=== PATIENT | female | born 1925 | race Caucasian/White ===

== ENCOUNTER 2016-08-22 13:31 | Observation (INO) | payer OTHER, BC ==
[~2016-08-22] VITALS: Ht 162.6 cm; Wt 76.7 kg
[~2016-08-22 13:31] MED LIST: ASPI81TA28 PO; METO1TAB66 PO; ULT50X PO
[2016-08-22] MEDS ORDERED: RANITAB33 PO (13:53)
[2016-08-22] MEDS ORDERED: ASPIRIN 81 MG CHEW PO STA (13:53)
[2016-08-22] MEDS ORDERED: FERR143T5 PO (13:53)
[2016-08-22] MEDS ORDERED: NITROGLYCERIN OINT 2% 1GM PACKET EXT ONE (14:00)
[2016-08-22 14:12] LABS: BASO % 0.5 %; BASO ABS # 0.04 K/uL (0-0.2); COMPLETE YES; EOS % 5.8 %; HEMATOCRIT 36.7 % (37-47); IG% 0.1 %; LYMPH % 30.9 %; LYMPH ABS # 2.57 K/uL (1.2-3.4); MEAN CELL VOLUME 89.3 fL (80-100); MEAN CORPUSCULAR HEMOGLOBIN 29.2 pg (25-34); MEAN CORPUSCULAR HGB CONC 32.7 g/dl (32-36); MEAN PLATELET VOLUME 9.9 fL (7.4-10.4); MONO % 14.1 %; NEUT % 48.6 %; PLATELET COUNT 244 K/uL (130-400); RED BLOOD COUNT 4.11 M/uL (4.2-5.4); WHITE BLOOD COUNT 8.32 K/uL (4.8-10.8)
[2016-08-22 14:26] LABS: CALCIUM 9.2 mg/dl (8.5-10.1)
[2016-08-22 14:29] LABS: ALT/SGPT 30 U/L (12-78); AST/SGOT 33 U/L (15-37); BLOOD UREA NITROGEN 17 mg/dl (7-18); BUN/CREATININE RATIO 20.4 (10-20); CARBON DIOXIDE 23 mmol/L (21-32); CHLORIDE 106 mmol/L (98-107); CREATININE 0.82 mg/dl (0.60-1.20); GLUCOSE 96 mg/dl (70-99); POTASSIUM 3.9 mmol/L (3.5-5.1); SODIUM 138 mmol/L (136-145)
--- NOTE | 2016-08-22 14:30 | DIAGNOSTIC IMAGING REPORT ---
CHEST ONE VIEW PORTABLE HISTORY: Atypical CHEST PAIN COMPARISON: Chest 02/13/2015. FINDINGS: The heart remains mildly enlarged. Calcified granuloma the left lung base. Mild diffuse interstitial thickening which is likely chronic. Stable biapical densities, right greater than left. This is better appreciated on a [address] No pleural effusions. No pneumothorax. IMPRESSION: No significant change compared to the prior study. No acute process. Stable biapical densities, right greater than left. Electronically signed by: Octavio Mccormick M.D. 08/22/2016 2:29 PM Dictated Date/Time: 08/22/2016 2:27 PM
--- NOTE | 2016-08-22 14:34 | DIAGNOSTIC IMAGING REPORT ---
LEFT WRIST 4 VIEWS HISTORY: left wrist pain, no trauma COMPARISON: None. FINDINGS: There is no fracture or dislocation. Mild diffuse soft tissue swelling. Chondrocalcinosis at the TFCC. Severe osteoarthritis at the STT joint and first carpometacarpal joints. The bones are osteopenic. No radiopaque foreign bodies. IMPRESSION: 1. No fracture or dislocation within the left wrist. 2. Chondrocalcinosis. 3. Severe osteoarthritis at the STT and first carpometacarpal joints. Electronically signed by: Octavio Mccormick M.D. 08/22/2016 2:33 PM Dictated Date/Time: 08/22/2016 2:31 PM
[2016-08-22 14:35] LABS: ALKALINE PHOSPHATASE 92 U/L (45-117); CKMB/CK RATIO 3.2 (0-3.0)
[2016-08-22 14:52] LABS: PARTIAL THROMBOPLASTIN RATIO 1.2; PROTHROMBIN TIME (PATIENT) 10.5 SECONDS (9.0-12.0)
[2016-08-22] MEDS ORDERED: IV FLUIDS COMPLETED PRN (15:30)
[2016-08-22] MEDS ORDERED: ONDANSETRON INJ 2 MG/ML 2 ML VIAL IV PRN (16:00)
[2016-08-22] MEDS ORDERED: ACETAMINOPHEN 325 MG TAB PO PRN (16:00)
[2016-08-22] MEDS ORDERED: TRAMADOL HCL 50 MG TAB PO PRN (16:00)
[2016-08-22] MEDS ORDERED: ULT50X PO (16:02)
--- NOTE | 2016-08-22 16:18 | History and Physical ---
History & Physical Date of Service Aug 22, 2016. History & Physical This is an 89 year old pleasantly demented female with a PMH of hypertension, iron deficiency anemia presents with L wrist pain. As per daughter, who is at bedside, she was using this L wrist a lot the past few days. Upon presentation to the ER, the patient also mentioned L rib pain and L sided chest pain. She presented with uncontrolled blood pressure - and the daughter mentioned that she may have missed a few doses of her home medications. Currently, she is still pleasantly demented; no pain at this time, no distress. VITALS: Last Vital Signs Documentation Date Time Temp Pulse Resp B/P (MAP) Pulse Ox O2 Delivery O2 Flow Rate FiO2 08/22/16 14:57 75 18 154/73 08/22/16 14:15 96 Room Air 08/22/16 13:32 36.6 GEN: no acute distress, +pleasantly demented HEENT: NC/AT CVS: +S1, S2, RRR, holosystolic murmur heard best at R second intercostal space LUNGS: CTA b/l, no wheezing ABD: soft, NT/ND EXT: +slightly swollen L wrist, painful/decreased ROM NEURO: pleasantly demented, oriented x1 Chest Pain most likely musculoskeletal in nature initial cardiac enzyme is negative EKG does not show significant changes check echo, trend enzymes, monitor in tele repeat EKG in AM for now continue Toprol home dose continue aspirin d/c nitro paste in AM Hypertensive Urgency blood pressure > 190/100 missed some Toprol doses at home currently with Nitro paste, which should be d/c'd on 08/23 continue b-octaviano in AM, monitor pressures may need dose adjustment L Wrist Osteoarthritis L Wrist radiograph shows severe osteoarthritis likely an overuse injury will try Tramadol PRN as well as Voltaren gel
--- NOTE | 2016-08-22 16:38 | History and Physical ---
History & Physical Date & Time of Service: Aug 22, 2016 at 16:02 Chief Complaint: Swelling To Left Hand/Fingertips Sting/Pain Primary Care Physician: Yaritza Thomas M.D. History of Present Illness Source: patient, family (daughter Octavia at bedside), clinic records, hospital records This is an 89 year old female with PMH of hypertension and dementia who presents to the ED with left wrist pain and chest pain. History limited from the patient due to dementia. Daughter at bedside states patient was using the wrist Sunday working with windows and blinds. Then on Sunday patient developed left wrist pain and swelling with intermittent tingling of the fingers. Patient tried using ice, Tramadol, and Tylenol which helped, but wrist remains swollen. No fall. No prior wrist problems. Wrist pain is controlled at present. Daughter states en route patient complained of pain in left lateral rib area and she appeared flushed in the face. Per daughter at triage patient mentioned pain in left anterior chest. No chest pain currently. Patient does not recall when the chest pain started or any exacerbating factors. Pt's mental status is at baseline per daughter. Daughter reports chronic mild HURD when walking uphill which has been stable. Patient recently saw Dr. Thomas for rectal bleeding and was found to have hemorrhoids. No longer having any bleeding. Patient denies fever, chills, diaphoresis, dizziness, VIRAMONTES, URI symptoms , cough, SOB at rest, acid reflux symptoms, N/V, change in bowel or bladder movements, calf pain, edema, anxiety. Daughter reports patient missed her medications for past few days but did take them this morning. No history of CAD. No prior stress test. TTE in 01/2015 showed EF 55-60% and moderate aortic sclerosis. Past Medical/Surgical History Medical Problems: (1) Dementia Status: Chronic (2) HTN (hypertension) Status: Chronic (3) Pneumonia Status: Resolved Surgical Problems: (1) H/O: hysterectomy Status: Resolved (2) S/P cholecystectomy Status: Chronic Family History FH: HTN (hypertension) FH: cancer FH: gallbladder disease FH: heart disease BROTHER SISTER Social History Smoking Status: Never Smoker Alcohol Use: none Housing status: lives with family (with daughter) Allergies Coded Allergies: No Known Allergies (Unverified , 08/22/16) Home Medications Scheduled Aspirin (Aspirin Ec), 81 MG PO DAILY Ferrous Sulfate (Iron Slow Release), 143 MG PO DAILY Metoprolol Succinate (Toprol Xl), 50 MG PO DAILY Ranitidine Hcl (Zantac), 75 MG PO DAILY Scheduled PRN Tramadol HCl (Tramadol HCl), 50 MG PO Q6H PRN for Pain Review of Systems Ten systems reviewed and negative except as noted in HPI. Physical Exam Vital Signs Date Time Temp Pulse Resp B/P (MAP) Pulse Ox O2 Delivery O2 Flow Rate FiO2 08/22/16 14:57 75 18 154/73 08/22/16 14:15 87 20 195/81 96 Room Air 08/22/16 13:47 78 08/22/16 13:39 95 Room Air 08/22/16 13:32 36.6 97 18 167/84 94 Room Air General Appearance: WD/WN, no apparent distress, + pertinent finding (pleasant alert elderly female, lying in bed, no distress, daughter at bedside) Head: normocephalic, atraumatic Eyes: normal inspection, PERRL, EOMI, sclerae normal ENT: hearing grossly normal, pharynx normal Neck: supple, trachea midline Respiratory/Chest: lungs clear, normal breath sounds, no respiratory distress, no accessory muscle use, + pertinent finding (no tenderness on anterior chest) Cardiovascular: regular rate, rhythm, + systolic murmur Abdomen/GI: normal bowel sounds, non tender, soft Extremities/Musculoskelatal: no calf tenderness, no pedal edema, + pertinent finding (left lateral rib area + tenderness to palpation. left dorsal wrist mild swelling with trace erythema. no tenderness. no pain on ROM. ) Neurologic/Psych: alert, normal mood/affect, + pertinent finding (oriented to person, recognizes daughter, knows she is in the hospital but not the name of the hospital, disoriented to month/ year. no focal deficit on gross examination. ) Skin: normal color, warm/dry, no rash (no rash in left chest or under the left breast) Diagnostics Laboratory Results Results Past 24 Hours Test 08/22/16 14:00 08/22/16 14:26 Range/Units White Blood Count 8.32 4.8-10.8 K/uL Red Blood Count 4.11 4.2-5.4 M/uL Hemoglobin 12.0 12.0-16.0 g/dL Hematocrit 36.7 37-47 % Mean Corpuscular Volume 89.3 80-100 fL Mean Corpuscular Hemoglobin 29.2 25-34 pg Mean Corpuscular Hemoglobin Concent 32.7 32-36 g/dl Platelet Count 244 130-400 K/uL Mean Platelet Volume 9.9 7.4-10.4 fL Neutrophils (%) (Auto) 48.6 % Lymphocytes (%) (Auto) 30.9 % Monocytes (%) (Auto) 14.1 % Eosinophils (%) (Auto) 5.8 % Basophils (%) (Auto) 0.5 % Neutrophils # (Auto) 4.05 1.4-6.5 K/uL Lymphocytes # (Auto) 2.57 1.2-3.4 K/uL Monocytes # (Auto) 1.17 0.11-0.59 K/uL Eosinophils # (Auto) 0.48 0-0.5 K/uL Basophils # (Auto) 0.04 0-0.2 K/uL RDW Standard Deviation 48.4 36.4-46.3 fL RDW Coefficient of Variation 14.8 11.5-14.5 % Immature Granulocyte % (Auto) 0.1 % Immature Granulocyte # (Auto) 0.01 0.00-0.02 K/uL Sodium Level 138 136-145 mmol/L Potassium Level 3.9 3.5-5.1 mmol/L Chloride Level 106 98-107 mmol/L Carbon Dioxide Level 23 21-32 mmol/L Anion Gap 9.0 3-11 mmol/L Blood Urea Nitrogen 17 7-18 mg/dl Creatinine 0.82 0.60-1.20 mg/dl Est Creatinine Clear Calc Drug Dose 47.3 ml/min Estimated GFR () 73.5 Estimated GFR (Non- 63.4 BUN/Creatinine Ratio 20.4 10-20 Random Glucose 96 70-99 mg/dl Calcium Level 9.2 8.5-10.1 mg/dl Total Bilirubin 0.5 0.2-1 mg/dl Direct Bilirubin 0.2 0-0.2 mg/dl Aspartate Amino Transf (AST/SGOT) 33 15-37 U/L Alanine Aminotransferase (ALT/SGPT) 30 12-78 U/L Alkaline Phosphatase 92 45-117 U/L Total Creatine Kinase 98 26-192 U/L Creatine Kinase MB 3.1 0.5-3.6 ng/ml Creatine Kinase MB Ratio 3.2 0-3.0 Troponin I < 0.015 0-0.045 ng/ml Total Protein 7.3 6.4-8.2 gm/dl Albumin 3.3 3.4-5.0 gm/dl Lipase 121 73-393 U/L Prothrombin Time 10.5 9.0-12.0 SECONDS Prothromb Time International Ratio 1.0 0.9-1.1 Activated Partial Thromboplast Time 31.6 21.0-31.0 SECONDS Partial Thromboplastin Ratio 1.2 Diagnostic Radiology CHEST ONE VIEW PORTABLE HISTORY: Atypical CHEST PAIN COMPARISON: Chest 02/13/2015. FINDINGS: The heart remains mildly enlarged. Calcified granuloma the left lung base. Mild diffuse interstitial thickening which is likely chronic. Stable biapical densities, right greater than left. This is better appreciated on a [address] No pleural effusions. No pneumothorax. IMPRESSION: No significant change compared to the prior study. No acute process. Stable biapical densities, right greater than left. LEFT WRIST 4 VIEWS HISTORY: left wrist pain, no trauma COMPARISON: None. FINDINGS: There is no fracture or dislocation. Mild diffuse soft tissue swelling. Chondrocalcinosis at the TFCC. Severe osteoarthritis at the STT joint and first carpometacarpal joints. The bones are osteopenic. No radiopaque foreign bodies. IMPRESSION: 1. No fracture or dislocation within the left wrist. 2. Chondrocalcinosis. 3. Severe osteoarthritis at the STT and first carpometacarpal joints EKG NSR, 89 bpm, Minimal voltage criteria for LVH, may be normal variant, possible Inferior infarct age undetermined, cannot rule out Anterior infarct age undetermined, no significant change from prior EKG, as per cardiology read, also reviewed by me Impression Assessment and Plan CHEST PAIN Most likely musculoskeletal Rule out ACS Initial troponin negative; EKG without significant change Received aspirin 324 mg and nitro paste in ER Continue aspirin 81 mg daily Nitro paste through tomorrow AM for BP control Monitor in telemetry Trend serial cardiac enzymes Check echo Fasting lipid panel in am Repeat EKG in am HYPERTENSION BP elevated up to 210s systolic in ER Nitro paste started in ER with improvement to 150s systolic Continue Toprol XL 50 mg daily Continue nitro paste for today- d/c in AM Monitor BP May need med adjustment LEFT WRIST PAIN Likely due to overuse injury with underlying arthritis L wrist X-ray shows no fracture or dislocation, + chondrocalcinosis and severe OA PRN Tramadol, Tylenol, Voltaren gel, ice GERD Continue H2 octaviano DEMENTIA Mental status at baseline per daughter Monitor for delirium DVT PROPHYLAXIS Lovenox SQ CODE STATUS DNR per my discussion with the patient and her daughter Octavia who is POA. She does have a living will. DISPOSITION Observation to telemetry Lives with daughter Follows with Dr. Thomas for primary care Patient seen in collaboration with Dr. Tyler. Please see his addendum. VTE Prophylaxis VTE Risk Assessment Done? Y/N: Yes Risk Level: Moderate Given or contraindicated: Enoxaparin (Lovenox)SQ
[2016-08-22 17:16] VITALS: BP_SYST 183; BP_SYST 185; BP_DIAS 72; BP_DIAS 73; PULSE 82; TEMP 36.6; O2SAT 95
[2016-08-22 17:45] VITALS: BP 185/72; PULSE 82; TEMP 36.6; O2SAT 95; Ht 162.6 cm; Wt 76.7 kg
--- NOTE | 2016-08-22 17:56 | EMERGENCY ROOM VISIT NOTE ---
History Report prepared by Gunjan: Purvi Spencer Under the Supervision of: Dr. Lyle Rivera M.D. First contact with patient: 13:41 Chief Complaint: CARDIAC ASSESSMENT Stated Complaint: SWELLING TO LEFT HAND/FINGERTIPS STING/PAIN Nursing Triage Summary: pt to ED with left arm pain and chest pain that started with the arm on sunday and chest pain today History of Present Illness The patient is a 89 year old female who presents to the Emergency Room with complaints of worsening pain to left hand that began 2 days prior to arrival. Per the patient and her daughter, the patient has been experiencing pain to her left hand and fingers. She notes a tingling sensation to her fingers. The patient is also experiencing swelling to the left wrist. Today the patient was doing house work when she developed intermittent left sided chest pain. She rates the pain as 6/10 in severity. She has no chest pain at the moment. The patient is also very fatigued and has a headache. The patient is on hypertension medication and missed a few dosages the past couple of days but did take her medication this morning. She also took a baby Aspirin today. The patient has dementia. Pt denies LOC, fevers, chills, diaphoresis, visual changes , neck pain, breathing difficulties, nausea, vomiting, abdominal pain, back pain , melena, hematochezia, urinary symptoms, numbness, lymphadenopathy, rash, or other complaints. Source of History: patient, family Onset: 2 days OCCASIONAL BABYSITTER Position: hand (left) Quality: other (swelling and tingling) Associated Symptoms: + headache, + chest pain (left sided, 6/10), + fatigue Review of Systems See HPI for pertinent positives and negatives. A total of ten systems were reviewed and were otherwise negative. Past Medical & Surgical Medical Problems: (1) Chest pain (2) Dementia (3) HTN (hypertension) (4) Pleurisy (5) Pneumonia Surgical Problems: (1) H/O: hysterectomy (2) S/P cholecystectomy Family History FH: HTN (hypertension) FH: cancer FH: gallbladder disease FH: heart disease Social History Smoking Status: Never Smoker Alcohol Use: none Housing Status: lives with family Current/Historical Medications Scheduled Aspirin (Aspirin Ec), 81 MG PO DAILY Ferrous Sulfate (Iron Slow Release), 143 MG PO DAILY Metoprolol Succinate (Toprol Xl), 50 MG PO DAILY Ranitidine Hcl (Zantac), 75 MG PO DAILY Scheduled PRN Tramadol HCl (Tramadol HCl), 50 MG PO Q6H PRN for Pain Allergies Coded Allergies: No Known Allergies (Unverified , 08/22/16) Physical Exam Vital Signs Date Time Temp Pulse Resp B/P (MAP) Pulse Ox O2 Delivery O2 Flow Rate FiO2 08/22/16 15:01 71 14 08/22/16 14:57 154/73 08/22/16 14:57 75 18 154/73 08/22/16 14:31 81 20 08/22/16 14:15 87 20 195/81 96 Room Air 08/22/16 14:13 195/81 08/22/16 14:01 81 19 08/22/16 13:47 78 08/22/16 13:44 216/98 08/22/16 13:39 95 Room Air 08/22/16 13:32 36.6 97 18 167/84 94 Room Air Physical Exam GENERAL: Awake, alert, well-appearing, in no distress HENT: Normocephalic, atraumatic. Oropharynx unremarkable. EYES: Normal conjunctiva. Sclera non-icteric. NECK: Supple. No nuchal rigidity. FROM. No JVD. RESPIRATORY: Clear to auscultation. CARDIAC: Regular rate, normal rhythm. Extremities warm and well perfused. Pulses equal. ABDOMEN: Soft, non-distended. No tenderness to palpation. No rebound or guarding. No masses. RECTAL: Deferred. MUSCULOSKELETAL: Left chest tenderness that does not reproduce the pain. The back is symmetrical on inspection without obvious abnormality. There is no CVA tenderness to palpation. No joint edema. Left wrist swelling. LOWER EXTREMITIES: Calves are equal size bilaterally and non-tender. No edema. No discoloration. NEURO: Normal sensorium. No sensory or motor deficits noted. SKIN: No rash or jaundice noted. Medical Decision & Procedures ER Provider Diagnostic Interpretation: X-ray: Per my interpretation, radiologist review. CHEST ONE VIEW PORTABLE HISTORY: Atypical CHEST PAIN COMPARISON: Chest 02/13/2015. FINDINGS: The heart remains mildly enlarged. Calcified granuloma the left lung base. Mild diffuse interstitial thickening which is likely chronic. Stable biapical densities, right greater than left. This is better appreciated on a [address] No pleural effusions. No pneumothorax. IMPRESSION: No significant change compared to the prior study. No acute process. Stable biapical densities, right greater than left. Electronically signed by: Octavio Mccormick M.D. 08/22/2016 2:29 PM Dictated Date/Time: 08/22/2016 2:27 PM LEFT WRIST 4 VIEWS HISTORY: left wrist pain, no trauma COMPARISON: None. FINDINGS: There is no fracture or dislocation. Mild diffuse soft tissue swelling. Chondrocalcinosis at the TFCC. Severe osteoarthritis at the STT joint and first carpometacarpal joints. The bones are osteopenic. No radiopaque foreign bodies. IMPRESSION: 1. No fracture or dislocation within the left wrist. 2. Chondrocalcinosis. 3. Severe osteoarthritis at the STT and first carpometacarpal joints. Electronically signed by: Octavio Mccormick M.D. 08/22/2016 2:33 PM Dictated Date/Time: 08/22/2016 2:31 PM Laboratory Results 08/22/16 14:00 Red Blood Count 4.11, Mean Corpuscular Volume 89.3, Mean Corpuscular Hemoglobin 29.2, Mean Corpuscular Hemoglobin Concent 32.7, Mean Platelet Volume 9.9, Neutrophils (%) (Auto) 48.6, Lymphocytes (%) (Auto) 30.9, Monocytes (%) (Auto) 14.1, Eosinophils (%) (Auto) 5.8, Basophils (%) (Auto) 0.5, Neutrophils # (Auto ) 4.05, Lymphocytes # (Auto) 2.57, Monocytes # (Auto) 1.17, Eosinophils # (Auto ) 0.48, Basophils # (Auto) 0.04 08/22/16 14:00 Test 08/22/16 14:00 08/22/16 14:26 White Blood Count 8.32 K/uL (4.8-10.8) Red Blood Count 4.11 M/uL (4.2-5.4) Hemoglobin 12.0 g/dL (12.0-16.0) Hematocrit 36.7 % (37-47) Mean Corpuscular Volume 89.3 fL (80-100) Mean Corpuscular Hemoglobin 29.2 pg (25-34) Mean Corpuscular Hemoglobin Concent 32.7 g/dl (32-36) Platelet Count 244 K/uL (130-400) Mean Platelet Volume 9.9 fL (7.4-10.4) Neutrophils (%) (Auto) 48.6 % Lymphocytes (%) (Auto) 30.9 % Monocytes (%) (Auto) 14.1 % Eosinophils (%) (Auto) 5.8 % Basophils (%) (Auto) 0.5 % Neutrophils # (Auto) 4.05 K/uL (1.4-6.5) Lymphocytes # (Auto) 2.57 K/uL (1.2-3.4) Monocytes # (Auto) 1.17 K/uL (0.11-0.59) Eosinophils # (Auto) 0.48 K/uL (0-0.5) Basophils # (Auto) 0.04 K/uL (0-0.2) RDW Standard Deviation 48.4 fL (36.4-46.3) RDW Coefficient of Variation 14.8 % (11.5-14.5) Immature Granulocyte % (Auto) 0.1 % Immature Granulocyte # (Auto) 0.01 K/uL (0.00-0.02) Anion Gap 9.0 mmol/L (3-11) Est Creatinine Clear Calc Drug Dose 47.3 ml/min Estimated GFR () 73.5 Estimated GFR (Non- 63.4 BUN/Creatinine Ratio 20.4 (10-20) Calcium Level 9.2 mg/dl (8.5-10.1) Total Bilirubin 0.5 mg/dl (0.2-1) Direct Bilirubin 0.2 mg/dl (0-0.2) Aspartate Amino Transf (AST/SGOT) 33 U/L (15-37) Alanine Aminotransferase (ALT/SGPT) 30 U/L (12-78) Alkaline Phosphatase 92 U/L (45-117) Total Creatine Kinase 98 U/L (26-192) Creatine Kinase MB 3.1 ng/ml (0.5-3.6) Creatine Kinase MB Ratio 3.2 (0-3.0) Troponin I < 0.015 ng/ml (0-0.045) Total Protein 7.3 gm/dl (6.4-8.2) Albumin 3.3 gm/dl (3.4-5.0) Lipase 121 U/L (73-393) Prothrombin Time 10.5 SECONDS (9.0-12.0) Prothromb Time International Ratio 1.0 (0.9-1.1) Activated Partial Thromboplast Time 31.6 SECONDS (21.0-31.0) Partial Thromboplastin Ratio 1.2 Laboratory results reviewed by me Medications Administered Medications (Trade) Dose Ordered Sig/Ho Route Start Time Stop Time Status Last Admin Dose Admin Aspirin (Aspirin Chew) 324 mg NOW STAT PO 08/22/16 13:53 08/22/16 13:54 DC 08/22/16 14:13 324 MG Nitroglycerin (Nitroglycerin 2% Oint) 1 inch NOW ONCE EXT 08/22/16 14:00 08/22/16 14:01 DC 08/22/16 14:13 1 INCH ECG Indication: chest pain Rate (beats per minute): 89 Rhythm: normal sinus Findings: no acute ischemic change, other (LVH, inferior Q waves, poor R wave progression anteriorly) ED Course 1351: The patient was evaluated in room B4. A complete history and physical exam was performed. 1353: Aspirin Chew 324 mg PO. 1400: Nitroglycerin 2% Oint 1 inch EXT. 1503: Discussed the patient's case with HOUSTON Dowling. The patient will be evaluated for further treatment and disposition. 1510: Upon reexamination, the patient was hemodynamically stable. I discussed the test results and treatment plan with HOUSTON Dowling. The patient will be evaluated for further management. Medical Decision Medication Reconciliation: I attest that I have personally reviewed the patient' s current medication list Blood pressure screening: Patient was found to have an elevated blood pressure and was referred to their primary doctor for recheck and further treatment. Triage Nursing notes reviewed. The patient's presentation and history were concerning for chest and wrist pain. Etiologies such as musculoskeletal, cardiac ischemia, aortic dissection, pulmonary embolism, pneumonia, pneumothorax, infections, gastrointestinal, as well as others were entertained. The patient was evaluated. Clinically she is doing well. Her left wrist is swollen. X-ray imaging reveals arthritic change. The patient was given aspirin and Nitropaste. She was very hypertensive . Her CBC, chemistry panel, LFTs lipase and cardiac markers were unremarkable. Chest imaging does not reveal any acute pulmonary issues. She will need further evaluation and management in the hospital regarding this chest pain. Consultation was made with internal medicine. The patient was evaluated in the Emergency Room for further treatment. Consults Time Called: 1500 Consulting Physician: HOUSTON Dowling Returned Call: [phone] Discussed the patient's case. The patient will be evaluated for further treatment and disposition. Impression Primary Impression: Left sided chest pain Additional Impression: Left wrist pain Scribe Attestation The scribe's documentation has been prepared under my direction and personally reviewed by me in its entirety. I confirm that the note above accurately reflects all work, treatment, procedures, and medical decision making performed by me. Departure Information Dispostion Being Evaluated By Hospitalist Prescriptions Tramadol HCl (Tramadol HCl) 50 Mg Tab 50 MG PO Q6H Y for Pain, #20 TAB Prov: Rosy Olsen PA-C 08/22/16 Referrals Yaritza Thomas M.D. (PCP) Problem Qualifiers
[2016-08-22 18:23] VITALS: BP 133/65; PULSE 80
[2016-08-22] MEDS: NITROGLYCERIN OINT 2% 1GM PACKET EXT SCH ×2 (18:24→23:31)
[2016-08-22 20:22] LABS: CKMB/CK RATIO 2.4 (0-3.0)
[2016-08-22] MEDS: DICLOFENAC SOD 1% GEL 100 GM TUBE EXT SCH (21:25)
[2016-08-22] MEDS: ENOXAPARIN 40 MG/0.4 ML SYR SC SCH (21:25)
[2016-08-22 23:27] VITALS: BP 173/64; PULSE 105; TEMP 36.3; O2SAT 94
[2016-08-23] VITALS (9 sets, daily range): BP systolic 119–157; BP diastolic 55–76; PULSE 87–112; TEMP 36.8–37; O2SAT 92–96
[2016-08-23] MEDS: NITROGLYCERIN OINT 2% 1GM PACKET EXT SCH ×2 (05:55→13:29)
[2016-08-23] MEDS ORDERED: PERFLUTREN LIPID MICROSPHERE (DEFINITY) IV ONE (07:21)
[2016-08-23 07:28] LABS: CHOLESTEROL 160 mg/dl (0-200); CHOLESTEROL/HDL RATIO 2.5; HDL CHOLESTEROL 64 mg/dl; LDL CHOLESTEROL CALCULATED 85 mg/dl; TRIGLYCERIDES 57 mg/dl (0-150); VERY LOW DENSITY LIPOPROT CALC 11 mg/dl
[2016-08-23] MEDS ORDERED: FERROUS SULFATE PO SCH (09:00)
[2016-08-23] MEDS: ASPIRIN 81 MG ECTAB PO SCH (09:07)
[2016-08-23] MEDS: RANITIDINE HCL 150 MG TAB PO SCH (09:09)
[2016-08-23] MEDS: DICLOFENAC SOD 1% GEL 100 GM TUBE EXT SCH ×3 (09:09→20:40)
[2016-08-23] MEDS: METOPROLOL SUCC 50MG EXT REL TAB PO SCH (09:09)
--- NOTE | 2016-08-23 11:37 | ECHOCARDIOGRAM REPORT ---
*NOTICE TO RECEIVING LIBERTARIAN AGENCY This information is strictly Confidential and protected under [place] law. [place] law prohibits you from making any further disclosure of this information unless further disclosure is expressly permitted by the written consent of the person to whom it pertains or is authorized by law. A general authorization for the release of medical or other information is not sufficient for this purpose. Hospital accepts no responsibility if the information is made available to any other person, INCLUDING THE PATIENT. Interpretation Summary * Name: JOHN SHAH Study Date: 08/23/2016 06:53 AM BP: 157/73 mmHg * Patient Location: [facility] HR: 93 * : 1925 (M/d/yyyy) Gender: Female Height: 64 in * Age: 89 yrs Ethnicity: CA Weight: 174 lb * Ordering Physician: Rosy Olsen PA-C * Performed By: Ramona Ramírez RDCS * * Reason For Study: Chest pain * BSA: 1.8 m2 * -- Conclusions -- * Normal LV chamber size with mild concentric LVH. * Hyperdynamic LV systolic function, EF >70%. * No segmental left ventricular wall motion abnormalities are noted. * Grade I diastolic dysfunction. * Aortic valve sclerosis moderate, without significant aortic valvular stenosis. Procedure Details * A complete two-dimensional transthoracic echocardiogram was performed (2D, M-mode, Doppler and color flow Doppler). * A contrast injection of Definity was performed to improve assessment of LV function. * Contrast was injected into an intravenous site in the right arm. * One vial of Definity ultrasound contrast was diluted in normal saline to a total volume of 10 ml. A total of '2' ml of solution was administered during imaging. * Lot # [id number] of Definity utilized for procedure. * Expiration date SEP 12. * The attending nurse who injected the contrast agent was Alvaro Severino RN. Left Ventricle * The left ventricle is normal in size. * There is mild concentric left ventricular hypertrophy. * Ejection Fraction = >70 %. * Left ventricular systolic function is normal. * No segmental left ventricular wall motion abnormalities are noted. * The left ventricular wall motion is normal. Right Ventricle * The right ventricular cavity size is normal (basal dimension <4.2 cm in right ventricular apical 4-chamber view). * The right ventricular systolic function is normal as assessed by tricuspid annular plane systolic excursion (TAPSE) (normal >1.5 cm). Atria * The left atrial size is normal. * Right atrial size is normal. * No ASD detected; PFO is not assessed. Mitral Valve * The mitral valve is normal in structure and function. Tricuspid Valve * The tricuspid valve is normal in structure and function. Aortic Valve * The aortic valve is trileaflet. * Aortic valve sclerosis moderate, without significant aortic valvular stenosis. * There is no significant aortic regurgitation. Pulmonic Valve * The pulmonary valve is not well seen, but the Doppler examination is normal without significant regurgitation or stenosis. Great Vessels * The aortic root and proximal ascending aorta are normal sized. Pericardium/Pleural * There is no pericardial effusion. Left Ventricular Diastolic Function * Grade I diastolic dysfunction, (abnormal relaxation pattern). MMode 2D Measurements and Calculations IVSd 1.1 cm LVIDd 3.1 cm LVIDs 1.8 cm LVPWd 1.1 cm IVS/LVPW 0.94 FS 41.1 % EDV(Teich) 37.3 ml ESV(Teich) 9.9 ml EF(Teich) 73.4 % EDV(cubed) 29.2 ml ESV(cubed) 6.0 ml EF(cubed) 79.6 % LV mass(C)d 97.6 grams LV mass(C)dI 52.9 grams/m\S\2 CO(Teich) 2.6 l/min CI(Teich) 1.4 l/min/m\S\2 SV(Teich) 27.4 ml SI(Teich) 14.9 ml/m\S\2 CO(cubed) 2.2 l/min CI(cubed) 1.2 l/min/m\S\2 SV(cubed) 23.2 ml SI(cubed) 12.6 ml/m\S\2 Ao root diam 3.1 cm Ao root area 7.5 cm\S\2 ACS 1.2 cm LA dimension 2.3 cm asc Aorta Diam 2.9 cm LA/Ao 0.75 LVOT diam 2.0 cm LVOT area 3.2 cm\S\2 LVAd ap4 24.5 cm\S\2 LVLd ap4 7.1 cm EDV(MOD-sp4) 70.0 ml LVAs ap4 12.5 cm\S\2 LVLs ap4 5.4 cm ESV(MOD-sp4) 23.6 ml EF(MOD-sp4) 66.3 % LVAd ap2 26.9 cm\S\2 LVLd ap2 7.8 cm EDV(MOD-sp2) 76.7 ml LVAs ap2 11.2 cm\S\2 LVLs ap2 5.3 cm ESV(MOD-sp2) 20.3 ml EF(MOD-sp2) 73.5 % CO(MOD-sp4) 4.4 l/min CI(MOD-sp4) 2.4 l/min/m\S\2 SV(MOD-sp4) 46.4 ml SI(MOD-sp4) 25.2 ml/m\S\2 CO(MOD-sp2) 5.4 l/min CI(MOD-sp2) 2.9 l/min/m\S\2 SV(MOD-sp2) 56.4 ml SI(MOD-sp2) 30.6 ml/m\S\2 Doppler Measurements and Calculations MV E max alban 58.2 cm/sec MV A max alban 108.2 cm/sec MV E/A 0.54 MV dec time 0.18 sec Ao V2 max 226.7 cm/sec Ao max PG 20.6 mmHg Ao max PG (full) 15.4 mmHg Ao V2 mean 147.6 cm/sec Ao mean PG 10.0 mmHg Ao V2 VTI 39.5 cm ROLAND(V,A) 1.6 cm\S\2 ROLAND(V,D) 1.6 cm\S\2 LV V1 max PG 5.1 mmHg LV V1 max 113.0 cm/sec SV(Ao) 296.0 ml SI(Ao) 160.6 ml/m\S\2 PA V2 max 107.2 cm/sec PA max PG 4.6 mmHg PA acc slope 575.3 cm/sec\S\2 PA acc time 0.12 sec TR max alban 145.2 cm/sec PA pr(Accel) 25.1 mmHg
[2016-08-23] MEDS ORDERED: NURSING VERBAL MED ORDER ONE (14:00)
--- NOTE | 2016-08-23 17:54 | Progress Note ---
Internal Med Progress Note Date of Service: Aug 23, 2016. Provider Documentation: SUBJECTIVE: The patient was seen and examined Denies any more chest pain Not sure if she had any CP even before admission No other symptoms OBJECTIVE: Vital Signs-as noted below Exam: General-no distress Eyes-normal ENT-normal Neck-supple Lungs-clear to auscultate bilaterally Heart-Regular,no murmur Abdomen-Benign,no masses,bowel sound present Extremities-Trace edema bilaterally Neuro-AAOx3 Lab data as noted below. ASSESSMENT & PLAN: ATYPICAL CHEST PAIN Most likely musculoskeletal Serial Troponins and EKG -negative for an acute ACS Received aspirin 324 mg and nitro paste in ER Continue aspirin 81 mg daily Nitro paste through tomorrow AM for BP control Monitor in telemetry-no arrhythmia Check echo::Normal LV chamber size with mild concentric LVH. * Hyperdynamic LV systolic function, EF >70%. * No segmental left ventricular wall motion abnormalities are noted. * Grade I diastolic dysfunction. * Aortic valve sclerosis moderate, without significant aortic valvular stenosis. Fasting lipid panel in am::Noted and unremarkable No more CP /any other symptoms HYPERTENSION BP elevated up to 210s systolic in ER Nitro paste started in ER with improvement to 150s systolic Continue Toprol XL 50 mg daily Continue nitro paste for today- d/c in AM BP is controlled now LEFT WRIST PAIN Likely due to overuse injury with underlying arthritis L wrist X-ray shows no fracture or dislocation, + chondrocalcinosis and severe OA PRN Tramadol, Tylenol, Voltaren gel, ice No acute symptoms now GERD Continue H2 octaviano DEMENTIA Mental status at baseline per daughter Monitor for delirium DVT PROPHYLAXIS Lovenox SQ CODE STATUS DNR per my discussion with the patient and her daughter Octavia who is POA. She does have a living will. DISPOSITION Observation to telemetry Lives with daughter Follows with Dr. Thomas for primary care Likely home tomorrow Vital Signs: Date Time Temp Pulse Resp B/P (MAP) Pulse Ox O2 Delivery O2 Flow Rate FiO2 08/23/16 15:12 36.8 94 18 145/72 (96) 94 Room Air 08/23/16 12:00 Room Air 08/23/16 11:30 36.9 96 16 119/67 (84) 94 Room Air 08/23/16 09:10 112 123/55 (77) 08/23/16 08:00 95 Room Air 08/23/16 07:33 36.9 89 16 146/71 (96) 95 Room Air 08/23/16 05:52 93 157/73 (101) 08/23/16 04:00 Room Air 08/23/16 00:09 Room Air 08/22/16 23:27 36.3 105 16 173/64 (100) 94 Room Air 08/22/16 20:00 Room Air 08/22/16 18:23 80 133/65 (87) Lab Results: Results Past 24 Hours Test 08/22/16 19:38 08/23/16 02:00 08/23/16 05:59 Range/Units Total Creatine Kinase 87 26-192 U/L Creatine Kinase MB 2.1 0.5-3.6 ng/ml Creatine Kinase MB Ratio 2.4 0-3.0 Troponin I < 0.015 < 0.015 0-0.045 ng/ml Triglycerides Level 57 0-150 mg/dl Cholesterol Level 160 0-200 mg/dl HDL Cholesterol 64 mg/dl LDL Cholesterol, Calculated 85 mg/dl VLDL Cholesterol, Calculated 11 mg/dl Cholesterol/HDL Ratio 2.5
[2016-08-23] MEDS: ENOXAPARIN 40 MG/0.4 ML SYR SC SCH (20:40)
[2016-08-24 05:04] VITALS: BP 156/75; PULSE 82; TEMP 36.7; O2SAT 93
[2016-08-24 05:47] LABS: HEMATOCRIT 36.9 % (37-47); MEAN CELL VOLUME 88.5 fL (80-100); MEAN CORPUSCULAR HEMOGLOBIN 28.8 pg (25-34); MEAN CORPUSCULAR HGB CONC 32.5 g/dl (32-36); MEAN PLATELET VOLUME 9.8 fL (7.4-10.4); PLATELET COUNT 249 K/uL (130-400); RED BLOOD COUNT 4.17 M/uL (4.2-5.4); WHITE BLOOD COUNT 7.92 K/uL (4.8-10.8)
[2016-08-24 06:22] LABS: BUN/CREATININE RATIO 21.9 (10-20); CREATININE 0.76 mg/dl (0.60-1.20); MAGNESIUM 2.6 mg/dl (1.8-2.4); POTASSIUM 3.9 mmol/L (3.5-5.1)
[2016-08-24 07:11] LABS: CALCIUM 9.4 mg/dl (8.5-10.1)
[2016-08-24 07:40] VITALS: BP 151/67; PULSE 91; TEMP 36.9; O2SAT 94
[2016-08-24] MEDS: METOPROLOL SUCC 50MG EXT REL TAB PO SCH (08:36)
[2016-08-24] MEDS: ASPIRIN 81 MG ECTAB PO SCH (08:36)
[2016-08-24] MEDS: DICLOFENAC SOD 1% GEL 100 GM TUBE EXT SCH (08:36)
[2016-08-24] MEDS: RANITIDINE HCL 150 MG TAB PO SCH (08:36)
--- NOTE | 2016-08-24 11:19 | Progress Note ---
Internal Med Progress Note Date of Service: Aug 24, 2016. Provider Documentation: SUBJECTIVE: The patient was seen and examined Denies any more chest pain Not sure if she had any CP even before admission No other symptoms Denies any symptoms Ambulating well Ready to go home OBJECTIVE: Vital Signs-as noted below Exam: General-no distress Eyes-normal ENT-normal Neck-supple Lungs-clear to auscultate bilaterally Heart-Regular,no murmur Abdomen-Benign,no masses,bowel sound present Extremities-Trace edema bilaterally Neuro-AAOx3 Lab data as noted below. ASSESSMENT & PLAN: ATYPICAL CHEST PAIN Most likely musculoskeletal Serial Troponins and EKG -negative for an acute ACS Received aspirin 324 mg and nitro paste in ER Continue aspirin 81 mg daily Nitro paste through tomorrow AM for BP control Monitor in telemetry-no arrhythmia Check echo::Normal LV chamber size with mild concentric LVH. * Hyperdynamic LV systolic function, EF >70%. * No segmental left ventricular wall motion abnormalities are noted. * Grade I diastolic dysfunction. * Aortic valve sclerosis moderate, without significant aortic valvular stenosis. Fasting lipid panel in am::Noted and unremarkable No more CP /any other symptoms Remains stable Ambulating well Denies any more symptoms Ready to be discharged HYPERTENSION BP elevated up to 210s systolic in ER Nitro paste started in ER with improvement to 150s systolic Continue Toprol XL 50 mg daily Continue nitro paste for today- d/c in AM BP is controlled now=remains controlled LEFT WRIST PAIN-resolved Likely due to overuse injury with underlying arthritis L wrist X-ray shows no fracture or dislocation, + chondrocalcinosis and severe OA PRN Tramadol, Tylenol, Voltaren gel, ice No acute symptoms now GERD Continue H2 octaviano DEMENTIA Mental status at baseline per daughter Monitor for delirium DVT PROPHYLAXIS Lovenox SQ CODE STATUS DNR per my discussion with the patient and her daughter Octavia who is POA. She does have a living will. DISPOSITION Observation to telemetry Lives with daughter and has had detailed discussion with the Daughter Follows with Dr. Thomas for primary care Likely home today Vital Signs: Date Time Temp Pulse Resp B/P (MAP) Pulse Ox O2 Delivery O2 Flow Rate FiO2 08/24/16 08:30 Room Air 08/24/16 07:40 36.9 91 16 151/67 (95) 94 Room Air 08/24/16 05:04 36.7 82 20 156/75 (102) 93 Room Air 08/24/16 04:00 Room Air 08/24/16 00:00 Room Air 08/23/16 23:47 37.0 89 20 156/71 (99) 92 Room Air 08/23/16 20:00 Room Air 08/23/16 19:14 36.8 87 18 147/76 (99) 96 Room Air 08/23/16 16:02 94 Room Air 08/23/16 15:12 36.8 94 18 145/72 (96) 94 Room Air 08/23/16 12:00 Room Air 08/23/16 11:30 36.9 96 16 119/67 (84) 94 Room Air Lab Results: Results Past 24 Hours Test 08/24/16 05:31 Range/Units White Blood Count 7.92 4.8-10.8 K/uL Red Blood Count 4.17 4.2-5.4 M/uL Hemoglobin 12.0 12.0-16.0 g/dL Hematocrit 36.9 37-47 % Mean Corpuscular Volume 88.5 80-100 fL Mean Corpuscular Hemoglobin 28.8 25-34 pg Mean Corpuscular Hemoglobin Concent 32.5 32-36 g/dl RDW Standard Deviation 48.2 36.4-46.3 fL RDW Coefficient of Variation 14.8 11.5-14.5 % Platelet Count 249 130-400 K/uL Mean Platelet Volume 9.8 7.4-10.4 fL Sodium Level 140 136-145 mmol/L Potassium Level 3.9 3.5-5.1 mmol/L Chloride Level 108 98-107 mmol/L Carbon Dioxide Level 25 21-32 mmol/L Anion Gap 7.0 3-11 mmol/L Blood Urea Nitrogen 17 7-18 mg/dl Creatinine 0.76 0.60-1.20 mg/dl Est Creatinine Clear Calc Drug Dose 50.5 ml/min Estimated GFR () 80.6 Estimated GFR (Non- 69.5 BUN/Creatinine Ratio 21.9 10-20 Random Glucose 102 70-99 mg/dl Calcium Level 9.4 8.5-10.1 mg/dl Magnesium Level 2.6 1.8-2.4 mg/dl
--- NOTE | 2016-08-24 11:23 | Discharge Instructions ---
Discharge Instructions Date of Service Aug 24, 2016. Admission Reason for Admission: Chest Pain Discharge Discharge Diagnosis / Problem: Atypical Chest pain-Resolved and no ACS,HTN - controlled Discharge Goals Goal(s): Prevent Disease Progression Activity Recommendations Activity Limitations: resume your previous activity . Instructions / Follow-Up Instructions / Follow-Up Dr Thomas on 09/01/16 at 12:45 PM.Please take precaution to avoid fall Current Hospital Diet Patient's current hospital diet: AHA Diet (Heart Healthy) Discharge Diet Recommended Diet: AHA Diet (Heart Healthy) Pending Studies Studies pending at discharge: no Laboratory Results Lipid Panel Test 08/23/16 05:59 Range/Units Triglycerides Level 57 0-150 mg/dl Cholesterol Level 160 0-200 mg/dl HDL Cholesterol 64 mg/dl Cholesterol/HDL Ratio 2.5 LDL Cholesterol, Calculated 85 mg/dl Medical Emergencies . Who to Call and When: Medical Emergencies: If at any time you feel your situation is an emergency, please call 911 immediately. . Non-Emergent Contact Non-Emergency issues call your: Primary Care Provider . Past History Medical & Surgical History: (1) Left wrist pain (2) Left sided chest pain (3) HTN (hypertension) (4) H/O: hysterectomy (5) S/P cholecystectomy . "Provider Documentation" section prepared by Rashi Centeno. . VTE Core Measure Inpt VTE Proph given/why not?: Enoxaparin (Lovenox)SQ
[2016-08-24 11:35] VITALS: BP 151/67; PULSE 91; TEMP 36.9; O2SAT 94
--- NOTE | 2016-08-25 07:54 | Discharge Summary ---
Discharge Summary Date of Service Aug 25, 2016. Discharge Summary Admission Date: Aug 22, 2016 at 15:15 Discharge Date: Aug 24, 2016 Discharge Disposition: Home Principal Diagnosis: Atypical Chest pain-Resolved and no ACS,HTN -controlled Secondary Diagnoses/Problems: Please see H&P and Hospital progress note Medication Reconciliation Continued Medications: Aspirin (Aspirin Ec) 81 Mg Tab 81 MG PO DAILY Ferrous Sulfate (Iron Slow Release) 143 Mg Tab 143 MG PO DAILY Metoprolol Succinate (Toprol Xl) 50 Mg Tab 50 MG PO DAILY, TAB Ranitidine Hcl (Zantac) 75 Mg Tab 75 MG PO DAILY, TAB Tramadol HCl (Tramadol HCl) 50 Mg Tab 50 MG PO Q6H PRN for Pain, #20 TAB Admission Information HPI (per Admitting provider): This is an 89 year old female with PMH of hypertension and dementia who presents to the ED with left wrist pain and chest pain. History limited from the patient due to dementia. Daughter at bedside states patient was using the wrist Sunday working with windows and blinds. Then on Sunday patient developed left wrist pain and swelling with intermittent tingling of the fingers. Patient tried using ice, Tramadol, and Tylenol which helped, but wrist remains swollen. No fall. No prior wrist problems. Wrist pain is controlled at present. Daughter states en route patient complained of pain in left lateral rib area and she appeared flushed in the face. Per daughter at triage patient mentioned pain in left anterior chest. No chest pain currently. Patient does not recall when the chest pain started or any exacerbating factors. Pt's mental status is at baseline per daughter. Daughter reports chronic mild HURD when walking uphill which has been stable. Patient recently saw Dr. Thomas for rectal bleeding and was found to have hemorrhoids. No longer having any bleeding. Patient denies fever, chills, diaphoresis, dizziness, VIRAMONTES, URI symptoms , cough, SOB at rest, acid reflux symptoms, N/V, change in bowel or bladder movements, calf pain, edema, anxiety. Daughter reports patient missed her medications for past few days but did take them this morning. No history of CAD. No prior stress test. TTE in 01/2015 showed EF 55-60% and moderate aortic sclerosis. Past Medical/Surgical History Medical Problems: (1) Dementia Status: Chronic (2) HTN (hypertension) Status: Chronic (3) Pneumonia Status: Resolved Surgical Problems: (1) H/O: hysterectomy Status: Resolved (2) S/P cholecystectomy Status: Chronic Family History FH: HTN (hypertension) FH: cancer FH: gallbladder disease FH: heart disease BROTHER SISTER Social History Smoking Status: Never Smoker Alcohol Use: none Housing status: lives with family (with daughter) Allergies Coded Allergies: No Known Allergies (Unverified , 08/22/16) Home Medications Scheduled Aspirin (Aspirin Ec), 81 MG PO DAILY Ferrous Sulfate (Iron Slow Release), 143 MG PO DAILY Metoprolol Succinate (Toprol Xl), 50 MG PO DAILY Ranitidine Hcl (Zantac), 75 MG PO DAILY Scheduled PRN Tramadol HCl (Tramadol HCl), 50 MG PO Q6H PRN for Pain Review of Systems Ten systems reviewed and negative except as noted in HPI. Physical Ex - H&P Physical Exam Vital Signs Date Time Temp Pulse Resp B/P (MAP) Pulse Ox O2 Delivery O2 Flow Rate FiO2 08/22/16 14:57 75 18 154/73 08/22/16 14:15 87 20 195/81 96 Room Air 08/22/16 13:47 78 08/22/16 13:39 95 Room Air 08/22/16 13:32 36.6 97 18 167/84 94 Room Air General Appearance: WD/WN, no apparent distress, + pertinent finding (pleasant alert elderly female, lying in bed, no distress, daughter at bedside) Head: normocephalic, atraumatic Eyes: normal inspection, PERRL, EOMI, sclerae normal ENT: hearing grossly normal, pharynx normal Neck: supple, trachea midline Respiratory/Chest: lungs clear, normal breath sounds, no respiratory distress, no accessory muscle use, + pertinent finding (no tenderness on anterior chest) Cardiovascular: regular rate, rhythm, + systolic murmur Abdomen/GI: normal bowel sounds, non tender, soft Extremities/Musculoskelatal: no calf tenderness, no pedal edema, + pertinent finding (left lateral rib area + tenderness to palpation. left dorsal wrist mild swelling with trace erythema. no tenderness. no pain on ROM. ) Neurologic/Psych: alert, normal mood/affect, + pertinent finding (oriented to person, recognizes daughter, knows she is in the hospital but not the name of the hospital, disoriented to month/ year. no focal deficit on gross examination. ) Skin: normal color, warm/dry, no rash (no rash in left chest or under the left breast) Diagnostics - H&P Diagnostics Laboratory Results Results Past 24 Hours Test 08/22/16 14:00 08/22/16 14:26 Range/Units White Blood Count 8.32 4.8-10.8 K/uL Red Blood Count 4.11 4.2-5.4 M/uL Hemoglobin 12.0 12.0-16.0 g/dL Hematocrit 36.7 37-47 % Mean Corpuscular Volume 89.3 80-100 fL Mean Corpuscular Hemoglobin 29.2 25-34 pg Mean Corpuscular Hemoglobin Concent 32.7 32-36 g/dl Platelet Count 244 130-400 K/uL Mean Platelet Volume 9.9 7.4-10.4 fL Neutrophils (%) (Auto) 48.6 % Lymphocytes (%) (Auto) 30.9 % Monocytes (%) (Auto) 14.1 % Eosinophils (%) (Auto) 5.8 % Basophils (%) (Auto) 0.5 % Neutrophils # (Auto) 4.05 1.4-6.5 K/uL Lymphocytes # (Auto) 2.57 1.2-3.4 K/uL Monocytes # (Auto) 1.17 0.11-0.59 K/uL Eosinophils # (Auto) 0.48 0-0.5 K/uL Basophils # (Auto) 0.04 0-0.2 K/uL RDW Standard Deviation 48.4 36.4-46.3 fL RDW Coefficient of Variation 14.8 11.5-14.5 % Immature Granulocyte % (Auto) 0.1 % Immature Granulocyte # (Auto) 0.01 0.00-0.02 K/uL Sodium Level 138 136-145 mmol/L Potassium Level 3.9 3.5-5.1 mmol/L Chloride Level 106 98-107 mmol/L Carbon Dioxide Level 23 21-32 mmol/L Anion Gap 9.0 3-11 mmol/L Blood Urea Nitrogen 17 7-18 mg/dl Creatinine 0.82 0.60-1.20 mg/dl Est Creatinine Clear Calc Drug Dose 47.3 ml/min Estimated GFR () 73.5 Estimated GFR (Non- 63.4 BUN/Creatinine Ratio 20.4 10-20 Random Glucose 96 70-99 mg/dl Calcium Level 9.2 8.5-10.1 mg/dl Total Bilirubin 0.5 0.2-1 mg/dl Direct Bilirubin 0.2 0-0.2 mg/dl Aspartate Amino Transf (AST/SGOT) 33 15-37 U/L Alanine Aminotransferase (ALT/SGPT) 30 12-78 U/L Alkaline Phosphatase 92 45-117 U/L Total Creatine Kinase 98 26-192 U/L Creatine Kinase MB 3.1 0.5-3.6 ng/ml Creatine Kinase MB Ratio 3.2 0-3.0 Troponin I < 0.015 0-0.045 ng/ml Total Protein 7.3 6.4-8.2 gm/dl Albumin 3.3 3.4-5.0 gm/dl Lipase 121 73-393 U/L Prothrombin Time 10.5 9.0-12.0 SECONDS Prothromb Time International Ratio 1.0 0.9-1.1 Activated Partial Thromboplast Time 31.6 21.0-31.0 SECONDS Partial Thromboplastin Ratio 1.2 Diagnostic Radiology CHEST ONE VIEW PORTABLE HISTORY: Atypical CHEST PAIN COMPARISON: Chest 02/13/2015. FINDINGS: The heart remains mildly enlarged. Calcified granuloma the left lung base. Mild diffuse interstitial thickening which is likely chronic. Stable biapical densities, right greater than left. This is better appreciated on a [address] No pleural effusions. No pneumothorax. IMPRESSION: No significant change compared to the prior study. No acute process. Stable biapical densities, right greater than left. LEFT WRIST 4 VIEWS HISTORY: left wrist pain, no trauma COMPARISON: None. FINDINGS: There is no fracture or dislocation. Mild diffuse soft tissue swelling. Chondrocalcinosis at the TFCC. Severe osteoarthritis at the STT joint and first carpometacarpal joints. The bones are osteopenic. No radiopaque foreign bodies. IMPRESSION: 1. No fracture or dislocation within the left wrist. 2. Chondrocalcinosis. 3. Severe osteoarthritis at the STT and first carpometacarpal joints EKG NSR, 89 bpm, Minimal voltage criteria for LVH, may be normal variant, possible Inferior infarct age undetermined, cannot rule out Anterior infarct age undetermined, no significant change from prior EKG, as per cardiology read, also reviewed by me Impression - H&P Impression Assessment and Plan CHEST PAIN Most likely musculoskeletal Rule out ACS Initial troponin negative; EKG without significant change Received aspirin 324 mg and nitro paste in ER Continue aspirin 81 mg daily Nitro paste through tomorrow AM for BP control Monitor in telemetry Trend serial cardiac enzymes Check echo Fasting lipid panel in am Repeat EKG in am HYPERTENSION BP elevated up to 210s systolic in ER Nitro paste started in ER with improvement to 150s systolic Continue Toprol XL 50 mg daily Continue nitro paste for today- d/c in AM Monitor BP May need med adjustment LEFT WRIST PAIN Likely due to overuse injury with underlying arthritis L wrist X-ray shows no fracture or dislocation, + chondrocalcinosis and severe OA PRN Tramadol, Tylenol, Voltaren gel, ice GERD Continue H2 octaviano DEMENTIA Mental status at baseline per daughter Monitor for delirium DVT PROPHYLAXIS Lovenox SQ CODE STATUS DNR per my discussion with the patient and her daughter Octavia who is POA. She does have a living will. DISPOSITION Observation to telemetry Lives with daughter Follows with Dr. Thomas for primary care Patient seen in collaboration with Dr. Tyler. Please see his addendum. VTE Prophylaxis VTE Risk Assessment Done? Y/N: Yes Risk Level: Moderate Given or contraindicated: Enoxaparin (Lovenox)SQ Physical Exam (per Admitting): General Appearance: WD/WN, no apparent distress, + pertinent finding ( pleasant alert elderly female, lying in bed, no distress, daughter at bedside) Head: normocephalic, atraumatic Eyes: normal inspection, PERRL, EOMI, sclerae normal ENT: hearing grossly normal, pharynx normal Neck: supple, trachea midline Respiratory/Chest: lungs clear, normal breath sounds, no respiratory distress, no accessory muscle use, + pertinent finding (no tenderness on anterior chest) Cardiovascular: regular rate, rhythm, + systolic murmur Abdomen/GI: normal bowel sounds, non tender, soft Extremities/Musculoskelatal: no calf tenderness, no pedal edema, + pertinent finding (left lateral rib area + tenderness to palpation. left dorsal wrist mild swelling with trace erythema. no tenderness. no pain on ROM. ) Neurologic/Psych: alert, normal mood/affect, + pertinent finding (oriented to person, recognizes daughter, knows she is in the hospital but not the name of the hospital, disoriented to month/ year. no focal deficit on gross examination.) Skin: normal color, warm/dry, no rash (no rash in left chest or under the left breast) Hospital Course ATYPICAL CHEST PAIN Most likely musculoskeletal Serial Troponins and EKG -negative for an acute ACS Received aspirin 324 mg and nitro paste in ER Continue aspirin 81 mg daily Nitro paste through tomorrow AM for BP control Monitor in telemetry-no arrhythmia Check echo::Normal LV chamber size with mild concentric LVH. * Hyperdynamic LV systolic function, EF >70%. * No segmental left ventricular wall motion abnormalities are noted. * Grade I diastolic dysfunction. * Aortic valve sclerosis moderate, without significant aortic valvular stenosis. Fasting lipid panel in am::Noted and unremarkable No more CP /any other symptoms Remains stable Ambulating well Denies any more symptoms Ready to be discharged HYPERTENSION BP elevated up to 210s systolic in ER Nitro paste started in ER with improvement to 150s systolic Continue Toprol XL 50 mg daily Continue nitro paste for today- d/c in AM BP is controlled now=remains controlled LEFT WRIST PAIN-resolved Likely due to overuse injury with underlying arthritis L wrist X-ray shows no fracture or dislocation, + chondrocalcinosis and severe OA PRN Tramadol, Tylenol, Voltaren gel, ice No acute symptoms now GERD Continue H2 octaviano DEMENTIA Mental status at baseline per daughter Monitor for delirium DVT PROPHYLAXIS Lovenox SQ CODE STATUS DNR per my discussion with the patient and her daughter Octavia who is POA. She does have a living will. DISPOSITION Observation to telemetry Lives with daughter and has had detailed discussion with the Daughter Follows with Dr. Thomas for primary care Likely home today Total time spent on discharge = 35 minutes This includes examination of the patient, discharge planning, medication reconciliation, and communication with other providers. Discharge Instructions Date of Service Aug 24, 2016. Admission Reason for Admission: Chest Pain Discharge Discharge Diagnosis / Problem: Atypical Chest pain-Resolved and no ACS,HTN - controlled Discharge Goals Goal(s): Prevent Disease Progression Activity Recommendations Activity Limitations: resume your previous activity . Instructions / Follow-Up Instructions / Follow-Up Dr Thomas on 09/01/16 at 12:45 PM.Please take precaution to avoid fall Current Hospital Diet Patient's current hospital diet: AHA Diet (Heart Healthy) Discharge Diet Recommended Diet: AHA Diet (Heart Healthy) Pending Studies Studies pending at discharge: no Laboratory Results Lipid Panel Test 08/23/16 05:59 Range/Units Triglycerides Level 57 0-150 mg/dl Cholesterol Level 160 0-200 mg/dl HDL Cholesterol 64 mg/dl Cholesterol/HDL Ratio 2.5 LDL Cholesterol, Calculated 85 mg/dl Medical Emergencies . Who to Call and When: Medical Emergencies: If at any time you feel your situation is an emergency, please call 911 immediately. . Non-Emergent Contact Non-Emergency issues call your: Primary Care Provider . Past History Medical & Surgical History: (1) Left wrist pain (2) Left sided chest pain (3) HTN (hypertension) (4) H/O: hysterectomy (5) S/P cholecystectomy . "Provider Documentation" section prepared by Rashi Centeno. . VTE Core Measure Inpt VTE Proph given/why not?: Enoxaparin (Lovenox)SQ <Electronically signed by Rashi Centeno M.D.> Signed: 08/24/16 1123 Additional Copies To Yaritza Thomas M.D.
== END 2016-08-24 11:54 | disposition home or self-care (01) ==
LOC: C.EDB 13:32 → C.MED 15:15 → ENRESERV 15:47
PROVIDERS: ADMIT Family Medicine; ATTEND Internal Medicine
DX: R07.89 Other chest pain (principal); I10 Essential (primary) hypertension; Z79.82 Long term (current) use of aspirin; F03.90 Unspecified dementia, unspecified severity, without behavioral disturbance, psychotic disturbance, mood disturbance, and anxiety; M25.532 Pain in left wrist; Z90.710 Acquired absence of both cervix and uterus; Z82.49 Family history of ischemic heart disease and other diseases of the circulatory system; Z80.0 Family history of malignant neoplasm of digestive organs; I70.0 Atherosclerosis of aorta; I51.89 Other ill-defined heart diseases